=== PATIENT | female | born 1955 | race American Indian/Alaskan Native ===

== ENCOUNTER 2016-09-26 12:04 | Emergency (ER) | payer OTHER ==
[2016-09-26] MEDS ORDERED: CATAPRES ONE (15:48)
[2016-09-26] MEDS ORDERED: CATAPRES PO ONE (15:53)
[2016-09-26 16:09] LABS: Hematocrit 44.6 % (30.3-42.9); Hemoglobin 14.6 gm/dl (10.1-14.3); Mean Corpuscular HGB Conc 33 % (30-34); Mean Corpuscular Hemoglobin 29 pg (28-32); Mean Corpuscular Volume 88 fl (79-97); Platelet Count 320 K/mm3 (140-440); Red Blood Count 5.09 M/mm3 (3.65-5.03); Red Cell Distribution Width 14.5 % (13.2-15.2); White Blood Count 11.1 K/mm3 (4.5-11.0)
[2016-09-26 16:28] LABS: Anion Gap 19 mmol/L; BUN/Creatinine Ratio 17.14; Blood Urea Nitrogen 12 mg/dL (7-17); Calcium 9.3 mg/dL (8.4-10.2); Carbon Dioxide 25 mmol/L (22-30); Chloride 101.5 mmol/L (98-107); Glucose 107 mg/dL (65-100); Potassium 4.1 mmol/L (3.6-5.0); Sodium 141 mmol/L (137-145)
[2016-09-26 16:30] LABS: Creatine Kinase MB 1.8 ng/mL (0.0-4.0)
[2016-09-26 16:31] LABS: Creatine Kinase 124 units/L (30-135)
--- NOTE | 2016-09-26 16:37 | Cat Scan Report ---
CT HEAD WITHOUT CONTRAST INDICATION: Hypertension, dizziness. COMPARISON: None similar at this institution. FINDINGS: Noncontrast head CT demonstrates normal ventricles and sulci without acute or recent infarct, hemorrhage, mass effect or midline shift. Minimal, benign right basal ganglia calcifications. Few lacunar infarcts as 3 mm in the right basal ganglia and right cortical nucleus, 4 mm in the left thalamus and approximately 7 mm left frontal white matter as on axial image 25. No abnormal extra-axial fluid collections. Posterior fossa structures and basilar cisterns appear within normal limits. Symmetric eye globes. Clear paranasal sinuses and mastoid air cells. Intact calvarium. Normal overlying scalp soft tissues. Numerous missing teeth. CONCLUSION: No acute intracranial CT abnormality, as described. Thank you for the opportunity to participate in this patient's care.
[2016-09-26 17:17] LABS: Bilirubin,Urine NEG (Negative); Blood,Urine NEG (Negative); Ketones,Urine NEG (Negative); Leukocyte Esterase,Urine TR (Negative); Mucus,Urine FEW /HPF; Nitrite,Urine NEG (Negative); Protein,Urine <15 mg/dL mg/dL (Negative); RBC,Urine < 1.0 /HPF (0.0-6.0); Urobilinogen,Urine < 2.0 mg/dL (<2.0)
[2016-09-26 17:43] VITALS: BP 130/74
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
== END 2016-09-26 18:20 | disposition home or self-care (01) ==
LOC: ED 12:04
DX: I10 Essential (primary) hypertension (principal); F17.200 Nicotine dependence, unspecified, uncomplicated; Z98.890 Other specified postprocedural states
CPT/HCPCS: 36415; 70450; 80048; 81001; 82550; 82553; 84484; 85027; 93005; 93010; 99284